=== PATIENT | female | born 2000 | race Two or more races ===

== ENCOUNTER 2025-04-05 04:52 | Emergency (ER) | payer BC ==
[2025-04-05] MEDS: Pantoprazole 40 MG Vial IVPUSH ONE (05:25)
[2025-04-05] MEDS: Alum Hydrox/Mag Hydrox/Simeth 30 ML, Lidocaine 2% 15 ML PO ONE (05:25)
[2025-04-05] MEDS: Ondansetron 4 MG/2 ML SDV IVPUSH ONE (05:25)
[2025-04-05] MEDS: hydrALAZINE 20 MG/ML SDV IVPUSH PRN (05:45)
[2025-04-05] MEDS ORDERED: hydrALAZINE 20 MG/ML SDV IVPUSH ONE (07:29)
== END 2025-04-05 07:55 | disposition home or self-care (01) ==
LOC: JD.ED 04:52
DX: K29.70 Gastritis, unspecified, without bleeding (principal); I10 Essential (primary) hypertension
CPT/HCPCS: 96374; 96375; 99283; A9270; J0360; J2405; J2470